=== PATIENT | male | born 1985 | race Caucasian/White ===

== ENCOUNTER 2020-11-14 05:18 | Emergency (ER) | payer OTHER ==
[~2020-11-14 05:18] MED LIST: BENTYL10 MG PO; Ciprofloxacin PO
[2020-11-14 05:51] LABS: BASOPHIL 0.5 % (0-2); EOSINOPHIL 1.3 % (0-5); HCT 39.1 % (42.0-52.0); HGB 13.9 g/dl (13.2-18.0); MCH 29.9 pg (25.0-31.0); MCHC 35.5 g/dL (32.0-36.0); MCV 84.1 fL (78.0-100.0); MPV 9.6 fL (6.0-9.5); NEUTROPHIL 37.2 % (41-80); NRBC 0; PLT 218 K/uL (150-400); RBC 4.65 M/uL (4.70-6.00); RDW 11.9 % (11.5-14.0); WBC 3.9 K/uL (4.0-10.5)
[2020-11-14 06:02] LABS: INR 1.04 (0.9-1.2); PROTHROMBIN TIME 12.9 SECONDS (11.4-13.6); PTT 30.2 SECONDS (22.2-34.7)
[2020-11-14 06:03] LABS: D-DIMER < 0.27 ug/mLFEU (0.00-0.41)
[2020-11-14 06:19] LABS: ALBUMIN 4.2 g/dL (3.4-5.0); BILIRUBIN - TOTAL 0.6 mg/dL (0.2-1.0); GLOBULIN (CALCULATION) 2.8 g/dL; POTASSIUM 3.8 mmol/L (3.5-5.1)
[2020-11-14] MEDS ORDERED: PROTONIX 40MG T40 MG PO (08:18)
== END 2020-11-14 08:37 | disposition home or self-care (01) ==
LOC: FER 05:18
PROVIDERS: Emergency Medicine Emergency Medical Services
DX: R07.89 Other chest pain (principal); R00.1 Bradycardia, unspecified
CPT/HCPCS: 36415; 71045; 80053; 84484; 85025; 85379; 85610; 85730; 93005; J7030

== ENCOUNTER 2021-07-21 04:34 | Emergency (ER) | payer OTHER ==
[~2021-07-21 04:34] MED LIST changes: +PROTONIX 40MG T40 MG PO
[2021-07-21 06:38] LABS: BASOPHIL 0.7 % (0-2); EOSINOPHIL 1.5 % (0-5); HCT 40.2 % (42.0-52.0); HGB 13.9 g/dl (13.2-18.0); LYMPHOCYTE 35.6 % (15-48); MCH 29.1 pg (25.0-31.0); MCHC 34.6 g/dL (32.0-36.0); MCV 84.1 fL (78.0-100.0); MONOCYTE 8.9 % (0-12); MPV 10.3 fL (6.0-9.5); NRBC 0; PLT 270 K/uL (150-400); RBC 4.78 M/uL (4.70-6.00); RDW 11.9 % (11.5-14.0)
[2021-07-21 06:41] LABS: CREATININE 1.07 mg/dL (0.67-1.17); PHOSPHORUS 3.2 mg/dL (2.6-4.7); POTASSIUM 3.6 mmol/L (3.5-5.1)
[2021-07-21 07:06] LABS: BILIRUBIN NEGATIVE (NEGATIVE); BLOOD NEGATIVE Ery/uL (NEGATIVE); CLARITY CLEAR (CLEAR); COLOR YELLOW (YELLOW); GLUCOSE (U) NORMAL (NORMAL); LEUKOCYTES NEGATIVE Leu/uL (NEGATIVE); NITRITE NEGATIVE (NEGATIVE); PROTEIN NEGATIVE (NEGATIVE); UROBILINOGEN 0.2 mg/dL (0.2-1.0)
== END 2021-07-21 08:19 | disposition home or self-care (01) ==
LOC: FER 04:34
PROVIDERS: Emergency Medicine Emergency Medical Services
DX: U07.1 COVID-19 (principal); R07.89 Other chest pain; R20.2 Paresthesia of skin
CPT/HCPCS: 36415; 71045; 80048; 81003; 82550; 83036; 83690; 83735; 83880; 84100; 84439; 84443; 84484; 85025; 85379; 93005; J7120; U0002